=== PATIENT | male | born 1940 | race Caucasian/White ===

== ENCOUNTER 2017-04-22 12:26 | Day surgery (SDC) | payer MEDICARE, BC ==
[2017-04-22 13:02] VITALS: BMI 28.3
[2017-04-22] MEDS ORDERED: hydrALAZINE 20 MG/ML VIAL SLOW IVP PRN (13:15)
[2017-04-22] MEDS ORDERED: Senokot 8.6 MG TAB PO PRN (13:15)
[2017-04-22] MEDS ORDERED: Chloraseptic Spray 180 ml Bottle PO PRN (13:15)
[2017-04-22] MEDS ORDERED: Ondansetron ODT 4 MG TAB PO PRN (13:15)
[2017-04-22] MEDS ORDERED: Zolpidem Tartrate 5 MG TAB PO PRN (13:15)
[2017-04-22] MEDS ORDERED: Loratadine 10 MG TAB PO PRN (13:15)
[2017-04-22] MEDS ORDERED: Milk Of Magnesia 30 ML UDCUP PO PRN (13:15)
[2017-04-22] MEDS ORDERED: Diabetic Tussin 200 MG/10 ML UDCUP PO PRN (13:15)
[2017-04-22] MEDS ORDERED: Mag-Al 1200 mg/1200 mg/30 ML UDCUP PO PRN (13:15)
[2017-04-22] MEDS ORDERED: Loperamide HCl 2 MG CAP PO PRN (13:15)
[2017-04-22] MEDS ORDERED: Ondansetron HCl/PF 4 MG/2 ML Vial IVP PRN (13:15)
[2017-04-22] MEDS ORDERED: cloNIDine 0.1 MG TAB PO PRN (13:15)
[2017-04-22] MEDS ORDERED: Labetalol HCl 100 MG/20 ML VIAL SLOW IVP PRN (13:15)
[2017-04-22] MEDS ORDERED: Sodium Chloride 0.65% Nasal 44 ML BOT EA NARE PRN (13:15)
[2017-04-22] MEDS ORDERED: HYDROcodone/Acetaminophen 5/325 mg Tablet PO PRN (13:15)
[2017-04-22] MEDS ORDERED: Acetaminophen 325 MG TAB PO PRN (13:15)
[2017-04-22] MEDS ORDERED: Nitroglycerin 0.4 MG TAB (25 Tab Bottle) SL PRN (13:15)
[2017-04-22] MEDS ORDERED: Eucerin (Mineral Oil/Petrolatum,White) 30 gm Jar TOP PRN (13:15)
[2017-04-22] MEDS ORDERED: Artificial Tears 18 DROP/0.9 ML EA EYE PRN (13:15)
[2017-04-22] MEDS ORDERED: HumaLOG 300 UNITS/3 ML VIAL SC PRN ×2 (13:50)
[2017-04-22] MEDS ORDERED: Dextrose 5% in Water 1,000 ML IV PRN (13:50)
[2017-04-22] MEDS ORDERED: Dextrose 50% Abboject 50 ML SYRINGE SLOW IVP PRN (13:50)
--- NOTE | 2017-04-22 14:51 | HP ---
PRIMARY CARE PHYSICIAN: Gladys Flannery M.D. REASON FOR ADMISSION: Direct admission from clinic for symptomatic anemia. HISTORY OF PRESENT ILLNESS: A 76-year-old male who has a history of chronic systolic heart failure a nd he required heart transplantation, he is on immunosuppressive therapy. He also has renal insuffic iency. For last several days, he was having more than usual increasing fatigue, dyspnea on exertion, dizziness, tiredness, shortness of breath and that is why he went to see primary care physician who ordered blood tests and his hemoglobin was very low and that is why his primary care physician and [place] [facility] [place] [employer] decided to transfuse 2 units of blood transfusion under cardiac monitoring and abelino t is why patient was sent to our hospital for admission. This patient had full workup of anemia in the past, but they are attributing to renal insufficiency. Patient is taking iron supplement and that is why he has dark stool, but he denies any black tarry s tool. He denies any hematochezia. He denies any epigastric abdominal pain, nausea, vomiting, hemate mesis. He denies taking NSAID. The patient has chronic shortness of breath. He denies any unusual changes in his overall wellbeing other than just tired, fatigue and dyspnea on exertion. He denies any lower extremity edema, orthopn ea, PND or leg swelling. He denies any fever or chills. Denies any flu-like illness. He denies any UTI symptoms. ALLERGIES: AMBIEN. REVIEW OF SYSTEMS: The following complete review of systems was negative, unless otherwise mentioned in the HPI or below: Constitutional: Weight loss or gain, ability to conduct usual activities. Skin: Rash, itching. Eyes: Double vision, pain. ENT/Mouth: Nose bleeding, neck stiffness, pain, tenderness. Cardiovascular: Palpitations, dyspnea on exertion, orthopnea. Respiratory: Shortness of breath, wheezing, cough, hemoptysis, fever or night sweats. Gastrointestinal: Poor appetite, abdominal pain, heartburn, nausea, vomiting, constipation, or diarr hea. Genitourinary: Urgency, frequency, dysuria, nocturia. Musculoskeletal: Pain, swelling. Neurologic/Psychiatric: Anxiety, depression. Allergy/Immunologic: Skin rash, bleeding tendency. Please see my HPI for pertinent positive and negative. All other review of systems reviewed and nega tive except as mentioned in the HPI. CURRENT HOME MEDICATIONS: Aspirin 81 mg p.o. daily, calcium with vitamin D 1 tablet p.o. daily, Core g 12.5 mg p.o. b.i.d., Plavix 75 mg p.o. daily, Cardura 4 mg p.o. daily, ferrous sulfate 325 mg p.o. b.i.d., folic acid 1 mg p.o. daily, Lasix 80 mg p.o. b.i.d., Lantus 28 units subcu daily, Imdur 60 mg p.o. daily, Protonix 40 mg p.o. daily, pravastatin 20 mg p.o. at bedtime, prednisone 5 mg p.o. daily , Prograf 1 mg p.o. b.i.d., ursodiol 300 mg p.o. b.i.d., valacyclovir 450 mg p.o. daily, verapamil 24 0 mg p.o. daily. PAST MEDICAL HISTORY: Coronary artery disease, diabetes type 2, hypertension, dyslipidemia, benign e nlargement of prostate, anemia of chronic disease, gastroesophageal reflux disease, chronic systolic heart failure. PAST SURGICAL HISTORY: Cardiac transplantation and cataract surgery. SOCIAL HISTORY: Patient has history of smoking about 1-2 pack per day for 20 years, but he quit smok ing more than 15 years ago. He denies any alcohol abuse. He denies any other illicit drug abuse. FAMILY HISTORY: Positive for diabetes among several family members. Positive for coronary artery di sease among several family members including brother, sister, and father. PAST PSYCHIATRIC HISTORY: Reviewed and negative. HOSPITAL COURSE: Reviewed. PHYSICAL EXAMINATION: VITAL SIGNS: On arrival, temperature 98.3, pulse 105, respiratory rate 24, saturation 97%, blood pre ssure 205/91 and weight 186 pounds. GENERAL: Patient is currently alert, awake, no obvious acute distress. HEAD: Normocephalic, atraumatic. EYES: Pupils round, reactive to light. Extraocular muscle intact. ENT: Oropharynx within normal limits. Moist mucous membranes. No oral lesions. No pharyngeal eryt marina, no exudate. NECK: Supple, no JVD, no thyromegaly, no carotid bruit, no jugular venous distention. LUNGS: Clear to auscultation without any rhonchi or rales. CARDIAC: S1 and S2 regular, soft systolic murmur present at parasternal area. No gallop, no rub. ABDOMEN: Soft, bowel sounds present, nontender, nondistended. No organomegaly, no mass, no suprapub ic tenderness. BACK: Examination unremarkable, no CVA tenderness. EXTREMITIES: Upper extremity passive movements of all joints are normal. Lower extremity, trace low er extremity edema noted. NEUROLOGIC: Nonfocal examination. SIGNIFICANT LABORATORY DATA: At this point, we do not have any labs but we are going to order CBC an d CMP. ASSESSMENT AND PLAN: 1. Symptomatic anemia. The patient will be given 2 units of blood transfusion. We will watch for a ny fluid overload status. We will keep him overnight and then tomorrow morning we will consider disc harging him home. We will check CBC tomorrow morning. 2. History of chronic systolic heart failure with history of cardiac transplantation. We will monit or on telemetry floor and we will watch for any fluid overload status as well as any kind of arrhythm ia. 3. History of cardiac transplant. We will continue immunosuppressive therapy with Prograf 1 mg p.o. b.i.d. and prednisone 5 mg p.o. daily as well as prophylactic therapy with valacyclovir 450 mg p.o. daily. 4. Chronic systolic heart failure and coronary artery disease. Continue Coreg 12.5 mg p.o. b.i.d., Lasix 80 mg p.o. b.i.d., Imdur 60 mg p.o. daily. 5. Sinus tachycardia. Continue verapamil 240 mg p.o. daily. 6. Benign enlargement of prostate. Continue Cardura 4 mg p.o. at bedtime. 7. Gastroesophageal reflux disease. Continue Protonix 40 mg p.o. daily. 8. Dyslipidemia. Continue pravastatin 20 mg p.o. at bedtime. 9. Diabetes type 2. Continue Lantus insulin 28 units subcutaneous daily and Humalog insulin as per sliding scale per protocol. Diabetic diet will be given. 10. Coronary artery disease. Continue aspirin 81 mg p.o. daily and Plavix 75 mg p.o. daily along wi th Coreg and Imdur. 11. Anemia of chronic disease. Continue folic acid and ferrous sulfate 325 mg p.o. b.i.d. 12. Deep venous thrombosis prophylaxis not needed because we are expecting discharge in 24 hours. 13. Gastrointestinal prophylaxis, Protonix 40 mg p.o. daily. CODE STATUS: The patient is FULL CODE. Patient does not have a surrogate decision maker. Dispositi on plan based on clinical course. We are expecting hospital stay in 24 hours and plan of care discus sed with the patient in detail.
[2017-04-22] MEDS: Carvedilol 6.25 MG TAB PO SCH (17:36)
[2017-04-22] MEDS: Ferrous Sulfate 325 MG TAB PO SCH (17:37)
[2017-04-22] MEDS: Furosemide 80 MG TAB PO SCH (20:41)
[2017-04-22] MEDS: Tacrolimus 1 MG CAP PO SCH (20:42)
[2017-04-22] MEDS: Ursodiol 300 MG CAP PO SCH (20:42)
[2017-04-22] MEDS ORDERED: Pantoprazole 40 MG GRANULES PACKET PO SCH (21:00)
[2017-04-22] MEDS ORDERED: Pravastatin Sodium 20 MG TAB PO SCH (21:00)
[2017-04-23 05:54] LABS: #Eosinphils 0.1 thou/uL (0.0-0.7); #Lymphocytes 1.3 thou/uL (1.20-3.40); #Monocytes 0.3 thou/uL (0.11-0.59); #Neutrophils 3.4 thou/uL (1.40-6.50); %Basophils 0.2 % (0.0-1.0); %Eosinophils 1.4 % (0.0-10.0); %Lymphocytes 25.7 % (21.0-51.0); %Monocytes 5.7 % (0.0-10.0); %Neutrophils 67.2 % (42.0-75.0); Hemoglobin 8.4 g/dL (14.0-18.0); Mean Corpuscular HGB CONC 32.8 g/dL (32.0-36.0); Mean Corpuscular Hemoglobin 33.3 pg (27.0-31.0); Mean Platelet Volume 6.8 fL (7.4-10.4); Platelet Count 118 thou/uL (130-400); RBC Distribution Width 15.2 % (11.5-14.5); Red Blood Cell (RBC) Count 2.51 mill/uL (4.70-6.10); White Blood Cell (WBC) Count 5.1 thou/uL (4.8-10.8)
[2017-04-23 06:23] LABS: ALT (SGPT) 9 U/L (8-55); AST (SGOT) 11 U/L (5-34); Albumin 3.2 g/dL (3.4-4.8); Alkaline Phosphatase 41 U/L (40-150); Anion Gap 8 mmol/L (10-20); BUN (Urea Nitrogen) 43 mg/dL (8.4-25.7); Bilirubin, Total 0.5 mg/dL (0.2-1.2); Calc. Creatinine Clearance 46 mL/min (70-130); Calcium 8.3 mg/dL (7.8-10.44); Carbon Dioxide 33 mmol/L (23-31); Chloride 101 mmol/L (98-107); Estimated GFR-MDRD 40; Globulin 2.9 g/dL (2.4-3.5); Glucose 88 mg/dL (83-110); Potassium 4.2 mmol/L (3.5-5.1); Protein, Total 6.1 g/dL (5.8-8.1); Sodium 138 mmol/L (136-145)
[2017-04-23 07:45] VITALS: BP 143/69; TEMP 98.5
[2017-04-23] MEDS: Tacrolimus 1 MG CAP PO SCH (08:59)
[2017-04-23] MEDS: Furosemide 80 MG TAB PO SCH (08:59)
[2017-04-23] MEDS: Ferrous Sulfate 325 MG TAB PO SCH (08:59)
[2017-04-23] MEDS ORDERED: Aspirin 81 mg Enteric Coated Tablet PO SCH (09:00)
[2017-04-23] MEDS ORDERED: Insulin Detemir 100 UNITS/ML 28 UNITS in Pre-Filled Syringe 1 EACH SC SCH (09:00)
[2017-04-23] MEDS ORDERED: Folic Acid 1 MG TAB PO SCH (09:00)
[2017-04-23] MEDS ORDERED: INSULIN GLARGINE HUM REC ANLOG 28 UNIT SQ SCH (09:00)
[2017-04-23] MEDS ORDERED: Doxazosin Mesylate 4 MG TAB PO SCH (09:00)
[2017-04-23] MEDS ORDERED: Clopidogrel Bisulfate 75 MG TAB PO SCH (09:00)
[2017-04-23] MEDS ORDERED: predniSONE 5 MG TAB PO SCH (09:00)
[2017-04-23] MEDS: Carvedilol 6.25 MG TAB PO SCH (09:00)
[2017-04-23] MEDS: Ursodiol 300 MG CAP PO SCH (09:00)
[2017-04-23] MEDS ORDERED: Calcium Carbonate + Vit D 1 TAB PO SCH (09:00)
--- NOTE | 2017-04-23 12:14 | DIS ---
PRIMARY CARE PHYSICIAN: Dr. Gladys Flannery. DATE OF ADMISSION: 04/22/2017 DATE OF DISCHARGE: 04/23/2017 DISCHARGE DISPOSITION: Home. PRIMARY DISCHARGE DIAGNOSIS: Symptomatic anemia, status post 2 unit transfusion. SECONDARY DISCHARGE DIAGNOSES: Coronary artery disease, chronic systolic heart failure, chronic kidn ey disease stage 3, diabetes type 2, dyslipidemia, gastroesophageal reflux disease, history of cardia c transplant, hypertension, and macrocytic anemia. PRIMARY PROCEDURE/OPERATION: None. RADIOLOGICAL INVESTIGATION: None. SIGNIFICANT LABORATORY DATA: WBC 5.1, hemoglobin 8.4, MCV 102, platelets 118. BMP: Sodium 138, pot assium 4.2, chloride 101, carbon dioxide 33, anion gap 8, BUN 43, creatinine 1.67, calcium 8.3. LFT: AST 11, ALT 9, alkaline phosphatase 41, albumin 3.2. DISCHARGE MEDICATIONS: Aspirin 81 mg p.o. daily, calcium with vitamin D 1 tablet p.o. daily, Coreg 1 2.5 mg p.o. b.i.d., Plavix 75 mg p.o. daily, Cardura 4 mg p.o. daily, ferrous sulfate 325 mg p.o. b.i .d., folic acid 1 mg p.o. daily, Lasix 80 mg p.o. b.i.d., Lantus 28 units subcu daily, Imdur 60 mg p. o. daily, Protonix 40 mg p.o. daily, pravastatin 20 mg p.o. at bedtime, prednisone 5 mg p.o. daily, P rograf 1 mg p.o. b.i.d., Ursodiol 300 mg p.o. b.i.d., valganciclovir 450 mg p.o. daily, and verapamil ER 240 mg p.o. daily. CONTRAINDICATIONS: None. CODE STATUS: FULL CODE. INPATIENT CONSULTANTS: None. ALLERGIES: AMBIEN. DISCHARGE PLAN: Post hospital, the patient will follow up with primary care physician in one week as well as primary lumber sorter. HOSPITAL COURSE: A 76-year-old male, who was evaluated at outpatient basis with Dr. Gladys Flannery. The patient was having increasing weakness, dyspnea, fatigue, tiredness, and his hemoglobin was also very low and that is why primary care physician and his lumber sorter decided to send him to the hosp ital to get blood transfusion given under cardiac monitoring. This patient was directly admitted fro [facility] and we kept him in there observation status. We transfused him 2 units of blood and next da y we rechecked hemoglobin, it was 8.4. The patient did very well and he did not have any complication after transfusion and there was no arr hythmia on telemetry monitoring. The patient is initially hypertensive, but after starting all his medication, patient's blood pressur e was well controlled. The patient does have chronic respiratory failure and he is using oxygen 2-3 liters nasal cannula at home as well. PHYSICAL EXAMINATION: The patient is seen and examined at bedside today. VITAL SIGNS: Currently temperature 98.5, pulse 89, respiratory rate 16, saturation 96% on 3 liters o f oxygen, blood pressure 143/69, and weight 186 pounds. GENERAL: The patient is currently alert, awake, in no acute distress. HEAD: Normocephalic, atraumatic. EYES: Pupils round, reactive to light. Extraocular muscles intact. ENT: Oropharynx within normal limits. Moist mucous membranes. No oral lesions. No pharyngeal eryt marina, no exudates. NECK: Supple, no JVD, no thyromegaly, no carotid bruit. LUNGS: Clear. CARDIAC: S1 and S2 regular, soft systolic murmur noted, no gallop, no rub. ABDOMEN: Soft and benign without any tenderness. EXTREMITIES: No edema. NEUROLOGIC: Nonfocal examination. The patient is medically stable for discharge. He will continue all his previous medications. During this admission, the patient's primary care physician did not request any further workup for an emia. Patient already had full workup done in the recent past as an outpatient basis at different [facility].
== END 2017-04-23 09:30 | disposition home or self-care (01) ==
LOC: SDC/OP 12:26 → 2SW 12:27 → SDC/OP 04-23 09:30
PROVIDERS: ATTEND Internal Medicine
DX: D53.9 Nutritional anemia, unspecified (principal); I13.0 Hypertensive heart and chronic kidney disease with heart failure and stage 1 through stage 4 chronic kidney disease, or unspecified chronic kidney disease; E11.22 Type 2 diabetes mellitus with diabetic chronic kidney disease; N18.3 Chronic kidney disease, stage 3 (moderate); I50.22 Chronic systolic (congestive) heart failure; D63.1 Anemia in chronic kidney disease; I25.10 Atherosclerotic heart disease of native coronary artery without angina pectoris; E78.5 Hyperlipidemia, unspecified; K21.9 Gastro-esophageal reflux disease without esophagitis; J96.10 Chronic respiratory failure, unspecified whether with hypoxia or hypercapnia; N40.0 Benign prostatic hyperplasia without lower urinary tract symptoms; Z87.891 Personal history of nicotine dependence; Z79.82 Long term (current) use of aspirin; Z79.4 Long term (current) use of insulin; Z79.52 Long term (current) use of systemic steroids; Z79.899 Other long term (current) drug therapy; Z88.8 Allergy status to other drugs, medicaments and biological substances; Z94.1 Heart transplant status; Z98.49 Cataract extraction status, unspecified eye; Z99.81 Dependence on supplemental oxygen
CPT/HCPCS: 36430; 80053; 82962; 85025; 86850; 86900; 86901; 86920; P9016; 36415; 36416; A4216; J1815; J7507